=== PATIENT | female | born 1935 | race Caucasian/White ===

== ENCOUNTER 2021-08-13 11:32 | Emergency (ER) | payer OTHER ==
[~2021-08-13] VITALS: Ht 165.1 cm; Wt 66.2 kg
--- NOTE | 2021-08-13 11:47 | NUR ---
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 VITALS ARE WITHIN NORMAL LIMITS. BREATHING IS EVEN AN UNLABORED. PT ATTCHED TO MONITOR. PROVIDED WITH WARM BLABNKET FOR COMFORT. DR MILLER AT BEDSIDE
--- NOTE | 2021-08-13 11:52 | NUR ---
IV ESTABLIHSED L FOREARM 20G. LABS COLLECTED AND DRAWN.
--- NOTE | 2021-08-13 11:57 | NUR ---
PT GIVEN BED BATH AND WAS CHANGED IN NEW LINENS AND DIAPER.
[2021-08-13] MEDS ORDERED: ONDANSETRON HCL/PF - ER 4 MG/2 ML VIAL IV ONE (12:00)
[2021-08-13] MEDS ORDERED: IV NS 0.9% 500 ML BAG IV ONE (12:00)
[2021-08-13 12:15] LABS: BASOPHILS % (AUTO) 0.3 % (0.0-2.0); EOSINOPHILS % (AUTO) 1.2 % (0.0-6.0); HEMATOCRIT 36 % (33-45); HEMOGLOBIN 11.8 g/dL (11.5-14.8); LYMPHOCYTES # (AUTO) 0.9 K/uL (0.8-4.8); LYMPHOCYTES % (AUTO) 6.5 % (20.0-44.0); MEAN CORPUSCULAR HGB CONC 33 g/dl (31.0-36.0); MEAN CORPUSCULAR VOLUME 88 fL (82-100); MONOCYTES # (AUTO) 0.7 K/uL (0.1-1.30); MONOCYTES % (AUTO) 5.5 % (2.0-12.0); NEUTROPHILS # (AUTO) 11.4 K/uL (1.8-8.9); NEUTROPHILS % (AUTO) 86.5 % (43.0-81.0); PLATELET COUNT (AUTO) 163 K/uL (150-450); RED BLOOD CELL COUNT(AUTO) 4.07 MIL/uL (4.0-5.2); WHITE BLOOD COUNT (AUTO) 13.2 K/uL (4.3-11.0)
[2021-08-13] MEDS ORDERED: ONDANSETRON HCL/PF 4 MG/2 ML VIAL ONE (12:33)
--- NOTE | 2021-08-13 13:18 | NUR ---
URINE COLLECTED AND SENT
[2021-08-13 13:53] LABS: BILIRUBIN,URINE NEGATIVE (NEGATIVE); COLOR,URINE YELLOW (YELLOW); LEUKOCYTE ESTERASE ,URINE NEGATIVE (NEGATIVE); NITRITE, URINE NEGATIVE (NEGATIVE); PROTEIN,URINE 30 mg/dl (NEGATIVE); UGLUCOSE NEGATIVE (NEGATIVE); UROBILINOGEN,URINE 0.2 EU/dL (0.2)
[2021-08-13 14:14] LABS: RBC,URINE 20-25 /HPF (0-2)
[2021-08-13 14:15] LABS: BACTERIA,URINE Few /HPF (None Seen); MUCUS,URINE Moderate /LPF (None Seen); SQUAMOUS EPITHELIAL CELL,UR Moderate /HPF (None Seen)
[2021-08-13 16:13] LABS: ALBUMIN 3.2 g/dL (3.4-5.0); BILIRUBIN,DIRECT 0.1 mg/dL (0.0-0.2); BILIRUBIN,TOTAL 0.7 mg/dL (0.2-1.0); CALCIUM, SERUM 9.2 mg/dL (8.5-10.1); CREATININE 0.8 mg/dL (0.6-1.3); POTASSIUM 4.2 mmol/L (3.5-5.1); TOTAL PROTEIN, SERUM 7.1 g/dL (6.4-8.2)
[2021-08-13] MEDS ORDERED: ONDA4TAB5 PO (16:38)
--- NOTE | 2021-08-13 16:39 | NUR ---
SPOKE WITH [facility]NA [facility] AT [facility] AND ASKED TO ARRANGED TRASNPORTATION BACK TO [facility]
--- NOTE | 2021-08-13 16:41 | NUR ---
STAFF NUMBER FOR PATIENT'S [facility] FACILITY [phone]
--- NOTE | 2021-08-13 16:49 | NUR ---
[place] GOING [place] [id number] [facility] [id number]
--- NOTE | 2021-08-13 16:53 | NUR ---
CALLED [facility] [phone]
--- NOTE | 2021-08-13 17:33 | NUR ---
SPOKE WITH [facility], THEY WILL BE SETTING UP TRANSPORTATION BACK TO [facility] AND WILL CALL BACK WITH [facility]
[2021-08-13 19:00] VITALS: BP 137/82
--- NOTE | 2021-08-13 19:16 | NUR ---
TRANSPORTATION HAS ARRIVED, REPORT GIVEN, PT BEING TRANSPORTED BACK TO [facility].
--- NOTE | 2021-08-13 19:22 | NUR ---
IV removed. Catheter intact and site benign. Pressure and 4x4 applied to site. No bleeding noted.
== END 2021-08-13 19:24 ==
LOC: ER 11:48
DX: R11.10 Vomiting, unspecified (principal); F03.90 Unspecified dementia, unspecified severity, without behavioral disturbance, psychotic disturbance, mood disturbance, and anxiety; I10 Essential (primary) hypertension
CPT/HCPCS: 36415; 71045; 74176; 80048; 80076; 81001; 83690; 85025; 93005; 96361; 96374; 99285; J2405 ×2; J7040